=== PATIENT | male | born 1990 | race Two or more races ===

== ENCOUNTER 2020-08-13 08:17 | Outpatient (REF) | payer OTHER, SELFPAY ==
[2020-08-13 08:41] LABS: COVID-19 Test Negative (Negative)
== END 2020-08-13 08:18 | disposition home or self-care (01) ==
LOC: HO.LAB 08:17
PROVIDERS: Visit Provider Internal Medicine
DX: Z20.822 Contact with and (suspected) exposure to COVID-19 (principal)
CPT/HCPCS: 36415; 87635; C9803

== ENCOUNTER 2020-08-21 09:11 | Emergency (ER) | payer OTHER, SELFPAY ==
[2020-08-21 09:28] VITALS: BP 124/83; PULSE 58; RESP 16; TEMP 36.2; O2SAT 99; BMI 34.4
--- NOTE | 2020-08-21 09:40 | ED.GENADULT ---
HPI - General Adult General Chief complaint: Extremity Problem Stated complaint: green toe nail? Time Seen by Provider: 08/21/20 09:39 Source: patient Limitations: no limitations History of Present Illness HPI narrative: Patient noticed some discoloration under his left great toe nail bed. Patient unsure if he injured that foot in the past. Patient has had a history of athlete's foot in the past. No other complaints at this time patient denies fever chills nausea Related Data Allergies Allergy/AdvReac Type Severity Reaction Status Date / Time No Known Allergies Allergy Unverified 12/27/19 17:33 Review of Systems Review of Systems: Constitutional : No Weight loss, No Fever, No Chills, No Night Sweats, No Fatigue, No Malaise ENT/Mouth : Denies sore throat Cardiovascular : No Chest Pain, No SOB Respiratory : No Cough, No Sputum Gastrointestinal : No Nausea, No Vomiting Musculoskeletal : Left great toe discoloration of the nail bed denies pain Neuro : No Weakness, No Numbness, No Paresthesias, No Loss of Consciousness, No Dizziness, No Headache Heme/Lymph: No Bruising, No Bleeding E PMFSH Past Medical History Attestation statement: The following information was validated with the patient. Social History Social History Smoked in Last 30 Days: No Use of substances other than those prescribed or required for medical reasons: Yes Substance Use Type: Marijuana Substance Use Frequency: Daily Advance Directives: No Advance Directives Information Provided: No Physical Exam Vital Signs: Vital Signs: Last Vital Signs Temp 97.1 F 08/21/20 09:28 Pulse 58 08/21/20 09:28 Resp 16 08/21/20 09:28 BP 124/83 08/21/20 09:28 Pulse Ox 99 08/21/20 09:28 Body Mass Index 34.4 vital signs have been reviewed as normal and appeared to be correct. Blood pressure normal. Heart rate normal. Respiration rate normal. Temperature normal. Oxygen saturation normal. Appearance: Alert. Oriented X3. No acute distress. Head: Normal external exam. Normocephalic. Atraumatic. No Au signs noted. No raccoon eyes noted Eyes: PERRLA. EOMI ENT: Pharynx normal. CVS: Heart regular rate and rhythm no murmurs and rubs Respiratory: Breath sounds are clear to auscultation bilaterally. No accessory muscle use noted. Skin: Skin warm and dry. No areas of erythema Extremities: Left great toe patient appears to have a resolving subungual hematoma common nailbeds nontender no lymphangitis positive couple Neuro: Oriented X 3. No motor deficit. No sensory deficit. Reflexes normal. Course Course Course Narrative: Symptoms likely secondary to resolve subungual hematoma of left great toe. Patient understands he may lose the nail Medical Decision Making Differential Diagnosis Differential Diagnosis: Left great toe subungual hematoma Contusion athlete's foot Discharge Plan Discharge Clinical Impression: Subungual contusion of toenail of left foot Patient Disposition: Home, Self-Care Instructions: Subungual Hematoma (ED) Additional Instructions: Warm soaks rest you may lose the nail
== END 2020-08-21 09:54 | disposition home or self-care (01) ==
PROVIDERS: Emergency Provider Emergency Medicine
DX: S90.212A Contusion of left great toe with damage to nail, initial encounter (principal); X58.XXXA Exposure to other specified factors, initial encounter; Y93.9 Activity, unspecified; Y92.9 Unspecified place or not applicable; Y99.9 Unspecified external cause status
CPT/HCPCS: 99282; 99283